=== PATIENT | male | born 1975 | race Caucasian/White ===

== ENCOUNTER 2020-01-07 08:02 | Observation (INO) | payer BC, OTHER ==
[~2020-01-07] VITALS: Ht 188 cm; Wt 108.0 kg
[2020-01-07 08:58] LABS: BASOPHILS % (AUTO) 1 % (0-1); EOSINOPHILS % (AUTO) 2 % (1-7); LYMPHOCYTES % (AUTO) 12 % (22-44); MEAN CORPUSCULAR HEMOGLOBIN 35.4 pg (27.5-34.5); MEAN CORPUSCULAR HGB CONC 34.4 g/dL (33.2-36.2); MEAN PLATELET VOLUME 8.9 fL (7.4-10.4); MONOCYTES % (AUTO) 4 % (2-9); NEUTROPHILS % (AUTO) 82 % (42-75); PLATELET COUNT 168 x10^3/uL (130-400); RED BLOOD COUNT 5.68 x10^6/uL (4.38-5.82); RED CELL DISTRIBUTION WIDTH 12.8 % (9.4-14.8)
[2020-01-07 09:09] LABS: ALANINE AMINOTRANSFERASE 235 U/L (12-78); ALBUMIN 3.9 g/dL (3.4-5.0); ANION GAP 8 mmol/L (5-15); CHLORIDE 109 mmol/L (98-107); CREATININE 1.15 mg/dL (0.7-1.3)
[2020-01-07] MEDS ORDERED: HYDR25TA6 PO (09:13)
[2020-01-07] MEDS ORDERED: AMLO10TA8 PO (09:13)
[2020-01-07] MEDS ORDERED: lisinopril PO (09:13)
[2020-01-07 09:14] LABS: ALKALINE PHOSPHATASE 99 U/L (45-117); BILIRUBIN,TOTAL 0.7 mg/dL (0.2-1.0); TOTAL PROTEIN 7.6 g/dL (6.4-8.2); TROPONIN I < 0.015 ng/mL (0.000-0.045)
--- NOTE | 2020-01-07 09:18 | NUR ---
PT REMAINS HYPERTENSIVE FELIZ EDEN AWARE. PT MEDICATED PER ORDERS. PT SITTING UP IN BED, REPORTS RELIEF FROM CP WHILE REMAINING STILL. AT BEDSIDE.
[2020-01-07 09:46] LABS: MD SCAN
[2020-01-07] MEDS ORDERED: LORazepam 2 MG/ML, 1ML ONE (10:00)
[2020-01-07] MEDS ORDERED: LORazepam 2 MG/ML, 1ML IVPush ONE (10:00)
--- NOTE | 2020-01-07 10:30 | NUR ---
TASK RN: PT STATES FEELS SLEEPY SINCE MEDICATED OTHERWISE NO CHANGES. AWARE OF INTENTION TO ADMIT
--- NOTE | 2020-01-07 11:24 | NUR ---
PT RECLINED IN BED, RESPIRATIONS EVEN AND UNLABORED ON RA. HOSPITALIST PA AT BEDSIDE.
--- NOTE | 2020-01-07 11:29 | NUR ---
FIRST ATTEMPT TO CALL REPORT.
[2020-01-07] MEDS ORDERED: DOCUSATE 100 MG CAPSULE PO PRN (12:00)
[2020-01-07] MEDS ORDERED: ONDANSETRON 2MG/ML, 2ML IVPush PRN (12:00)
[2020-01-07] MEDS ORDERED: ENALAPRILAT 1.25 MG/ML, 2ML IVPush PRN (12:00)
[2020-01-07] MEDS ORDERED: KETOROLAC 30 MG/1 ML IV PRN (12:00)
[2020-01-07] MEDS ORDERED: BISACODYL 10 MG SUPP PR PRN (12:00)
[2020-01-07] MEDS ORDERED: ACETAMINOPHEN 325 MG TABLET PO PRN (12:00)
[2020-01-07] MEDS ORDERED: LACTATED RINGERS 1,000 ML IV SCH (12:00)
[2020-01-07] MEDS ORDERED: ONDANSETRON ODT 4 MG PO PRN (12:00)
[2020-01-07] MEDS ORDERED: LABETALOL 5MG/ML, 20ML IVPush PRN (12:00)
[2020-01-07] MEDS ORDERED: NITROGLYCERIN 0.4 MG BOTTLE (25 TABS) SL PRN (12:00)
[2020-01-07] MEDS ORDERED: POLYETHYLENE GLYCOL 17 GM PACKET PO PRN (12:00)
[2020-01-07] MEDS ORDERED: ENOXAPARIN 40 MG/0.4 ML SQ SCH (12:00)
[2020-01-07 13:46] VITALS: BP 144/81
[2020-01-07] MEDS ORDERED: ENALAPRILAT 1.25 MG/ML, 1ML ONE (13:47)
[2020-01-07] MEDS: ASPIRIN 325 MG TABLET EC PO SCH (14:44)
[2020-01-07 15:46] LABS: TROPONIN I < 0.015 ng/mL (0.000-0.045)
[2020-01-07 16:58] VITALS: BP 150/92
[2020-01-07 19:48] VITALS: BP 162/99
[2020-01-07 21:01] LABS: TROPONIN I < 0.015 ng/mL (0.000-0.045)
[2020-01-07 21:41] LABS: AMPHETAMINE SCREEN, URINE Negative (Negative); BARBITURATE SCREEN, URINE Negative (Negative); BENZODIAZEPINE SCREEN, URINE Negative (Negative); CANNABINOID SCREEN, URINE Negative (Negative); COCAINE SCREEN, URINE Negative (Negative); METHADONE SCREEN, URINE Negative (Negative); OPIATE SCREEN, URINE Negative (Negative)
[2020-01-08 00:45] VITALS: BP 151/93
[2020-01-08] MEDS: ASPIRIN 325 MG TABLET EC PO SCH (05:29)
[2020-01-08 06:05] LABS: BASOPHILS % (AUTO) 1 % (0-1); EOSINOPHILS % (AUTO) 5 % (1-7); LYMPHOCYTES % (AUTO) 26 % (22-44); MEAN CORPUSCULAR HEMOGLOBIN 34.9 pg (27.5-34.5); MEAN CORPUSCULAR HGB CONC 33.7 g/dL (33.2-36.2); MEAN PLATELET VOLUME 9.1 fL (7.4-10.4); MONOCYTES % (AUTO) 7 % (2-9); NEUTROPHILS % (AUTO) 62 % (42-75); PLATELET COUNT 162 x10^3/uL (130-400); RED BLOOD COUNT 5.38 x10^6/uL (4.38-5.82); RED CELL DISTRIBUTION WIDTH 12.7 % (9.4-14.8)
[2020-01-08 06:18] LABS: ANION GAP 8 mmol/L (5-15); CALCIUM 8.7 mg/dL (8.5-10.1); CHLORIDE 107 mmol/L (98-107); CHOLESTEROL, TOTAL 200 mg/dL (140-239); TRIGLYCERIDES 229 mg/dL (50-200); VLDL CHOLESTEROL 46 mg/dL (0-25)
[2020-01-08 06:22] LABS: MD NO
[2020-01-08 06:27] LABS: CHOL/HDL RATIO 5.1; HDL CHOL % 20 % (26-37); HDL CHOLESTEROL (DIRECT) 39 mg/dL (40-60); LDL CHOLESTEROL,CALCULATED 115 mg/dL (54-169); LDL/HDL RATIO 2.9 (0.5-3.0)
[2020-01-08 07:20] VITALS: BP 164/106
[2020-01-08] MEDS ORDERED: LISINOPRIL 20 MG TABLET PO SCH (09:00)
[2020-01-08] MEDS ORDERED: AMLODIPINE 10 MG TAB PO SCH (09:00)
[2020-01-08] MEDS ORDERED: LISINOPRIL 20 MG TABLET PO ONE (10:30)
[2020-01-08] MEDS ORDERED: LEVOTHYROXINE 25 MCG TABLET PO SCH (11:00)
[2020-01-08] MEDS ORDERED: ASPI81TA45 PO (11:21)
[2020-01-08] MEDS ORDERED: METO25TA35 PO (11:21)
[2020-01-08] MEDS ORDERED: ATOR40TA78 PO (11:21)
[2020-01-08] MEDS ORDERED: LEVO25TA2 PO (11:21)
[2020-01-08] MEDS ORDERED: LISI-170 PO (11:21)
[2020-01-08] MEDS ORDERED: ATORVASTATIN 40 MG TABLET PO SCH (21:00)
== END 2020-01-08 14:04 | disposition home or self-care (01) ==
LOC: ED 09:45 → 5SO 10:29 → INTOOBSV 10:29 → DCLOUNGE 01-08 13:58
PROVIDERS: ADMIT Internal Medicine; ATTEND Internal Medicine
DX: R07.89 Other chest pain (principal); R00.0 Tachycardia, unspecified; I16.0 Hypertensive urgency; R74.01 Elevation of levels of liver transaminase levels; E83.110 Hereditary hemochromatosis; N63.20 Unspecified lump in the left breast, unspecified quadrant; I10 Essential (primary) hypertension; E78.5 Hyperlipidemia, unspecified; E03.9 Hypothyroidism, unspecified; E78.1 Pure hyperglyceridemia; F10.239 Alcohol dependence with withdrawal, unspecified; F17.210 Nicotine dependence, cigarettes, uncomplicated; Z79.82 Long term (current) use of aspirin; Z79.899 Other long term (current) drug therapy
CPT/HCPCS: 36415; 71046; 80048; 80053; 80061; 80307; 82728; 83540; 83735; 84443; 84466; 84484; 85025; 85379; 93005; 93017; 93306; 96361; 96372; 96374; 99195; 99285; G0378; J1650; J2060; J7120; 83550